=== PATIENT | male | born 1940 | race Caucasian/White ===

== ENCOUNTER 2023-02-27 12:13 | Inpatient (IN) | payer MEDICARE, OTHER ==
[2023-02-27 14:05] LABS: BASOPHILS PERCENT AUTO 0.3 % (0.3-3.8); EOSINOPHILS ABSOLUTE AUTO 0.1 x10-3/uL (0.0-0.6); EOSINOPHILS PERCENT AUTO 0.8 % (0.1-6.8); HEMATOCRIT 45.9 % (38.3-50.1); HEMOGLOBIN 15.5 g/dL (12.9-17.7); LYMPHOCYTES ABSOLUTE AUTO 1.3 x10-3/uL (0.5-4.5); LYMPHOCYTES PERCENT AUTO 12.1 % (15.8-45.3); MEAN CORPUSCULAR HGB CONC 33.7 g/dL (28.7-35.3); MEAN CORPUSCULAR VOLUME 88.9 fL (80.8-98.7); MEAN PLATELET VOLUME 8.6 fL (6.7-11.0); MONOCYTES ABSOLUTE AUTO 0.7 x10-3/uL (0.0-1.2); NEUTROPHILS ABSOLUTE AUTO 8.9 x10-3/uL (1.7-6.9); NEUTROPHILS PERCENT AUTO 80.8 % (40.3-71.8); PLATELET COUNT,PLT 111 x10(3)uL (117-477); RED BLOOD CELL COUNT 5.16 x10(6)uL (3.90-5.90); RED CELL DISTRIBUTION WIDTH 13.7 % (12.4-15.0)
[2023-02-27 14:08] LABS: BLOOD UREA NITROGEN,BUN 12 mg/dL (7-18); CARBON DIOXIDE,CO2 28 mmol/L (21-32); CHLORIDE,CL 105 mmol/L (100-110); CREATININE 0.8 mg/dL (0.70-1.30); EST CRCL DRUG DOSING (CG) 74.77 mL/min; ESTIMATED GFR 89 mL/min (>60); GLUCOSE RANDOM 105 mg/dL (80-116); SODIUM,NA 139 mmol/L (135-145)
[2023-02-27 14:14] LABS: ALANINE AMINOTRANSFERASE,ALT 31 U/L (12-36); ALBUMIN 3.5 g/dL (3.2-4.6); ALKALINE PHOSPHATASE 75 IU/L (56-112); ASPARTATE AMNIOTRANSFERASE,AST 21 IU/L (5-25); PROTEIN TOTAL,TP 6.9 g/dL (6.0-8.0)
[2023-02-27 15:40] LABS: BILIRUBIN,URINE NEGATIVE (NEGATIVE); GLUCOSE,URINE NORMAL (NORMAL); KETONES,URINE NEGATIVE (NEGATIVE); LEUKOCYTE ESTERASE,URINE NEGATIVE (NEGATIVE); NITRITE,URINE NEGATIVE (NEGATIVE); OCCULT BLOOD,URINE NEGATIVE (NEGATIVE); PROTEIN,URINE NEGATIVE (NEGATIVE); UROBILINOGEN,URINE 1 mg/dL (NEGATIVE)
[2023-02-27 15:44] LABS: APPEARANCE,URINE CLEAR (CLEAR); BACTERIA,URINE RARE (NS); COLOR,URINE YELLOW (YELLOW); RBC,URINE 0-5 (0-5); SQUAMOUS EPITHELIAL CELLS,UR OCCASIONAL (NS,R,O); WBC,URINE 0-5 (0-5)
[2023-02-27] MEDS ORDERED: Naloxone 0.4 MG/ML SDV IVPUSH PRN (16:48)
[2023-02-27] MEDS ORDERED: Ondansetron 4 MG/2 ML SDV IV PRN (16:48)
[2023-02-27] MEDS: traMADol 50 MG Tab PO PRN (17:16)
[2023-02-27] MEDS: Sodium Chloride 0.9% 10 ML Syringe FLUSH PRN ×3 (17:25→17:53)
[2023-02-27] MEDS: LORazepam 2 MG/ML SDV IV PRN (17:30)
[2023-02-27] MEDS: Morphine 2 MG/ML SYRINGE IVPUSH PRN (17:53)
[2023-02-28] MEDS: Morphine 2 MG/ML SYRINGE IVPUSH PRN (02:05)
[2023-02-28] MEDS: LORazepam 2 MG/ML SDV IV PRN ×3 (02:08→19:03)
[2023-02-28] MEDS: Sodium Chloride 0.9% 10 ML Syringe FLUSH PRN ×3 (02:12→19:03)
[2023-02-28] MEDS: Losartan 25 MG Tab PO SCH (09:47)
[2023-02-28] MEDS: Metoprolol Tartrate 50 MG Tab PO SCH (09:47)
[2023-02-28] MEDS: Trospium 20 MG Tab PO SCH ×2 (09:47→21:39)
[2023-02-28] MEDS: traMADol 50 MG Tab PO PRN (10:30)
[2023-02-28] MEDS: Calcium Carbonate 500 MG Tablet PO SCH ×2 (10:30→21:39)
[2023-02-28] MEDS: Dexamethasone 4 MG Tab PO SCH (10:30)
[2023-02-28] MEDS: Cholecalciferol (Vitamin D3) 25 MCG Tab PO SCH (10:30)
[2023-02-28] MEDS: Calcitonin (Salmon) Nasal Spray 3.7 ML Bottle NAS SCH (10:32)
[2023-02-28] MEDS: Acetaminophen 325 MG Tab PO PRN (12:33)
[2023-03-01] MEDS: Losartan 25 MG Tab PO SCH (08:26)
[2023-03-01] MEDS: Calcitonin (Salmon) Nasal Spray 3.7 ML Bottle NAS SCH ×2 (08:27→08:58)
[2023-03-01] MEDS: Metoprolol Tartrate 50 MG Tab PO SCH ×3 (08:27→20:08)
[2023-03-01] MEDS: Trospium 20 MG Tab PO SCH ×3 (08:28→20:09)
[2023-03-01] MEDS: Cholecalciferol (Vitamin D3) 25 MCG Tab PO SCH (08:29)
[2023-03-01] MEDS: traMADol 50 MG Tab PO PRN (08:37)
[2023-03-01] MEDS: Ketorolac 15 MG/ML SDV IVPUSH SCH ×2 (08:52→14:09)
[2023-03-01] MEDS: Sodium Chloride 0.9% 10 ML Syringe FLUSH PRN (08:56)
[2023-03-01] MEDS: Dexamethasone 4 MG Tab PO SCH ×3 (08:59→20:07)
[2023-03-01] MEDS: Calcium Carbonate 500 MG Tablet PO SCH ×3 (08:59→20:09)
[2023-03-01] MEDS: Haloperidol Lactate 5 MG/ML SDV IM PRN (16:00)
[2023-03-01] MEDS: Acetaminophen 325 MG Tab PO PRN (16:04)
[2023-03-01] MEDS: Escitalopram 10 MG Tab PO SCH ×2 (20:08)
[2023-03-01] MEDS: Naproxen 500 MG Tab PO SCH (20:09)
[2023-03-02] MEDS: Acetaminophen 325 MG Tab PO PRN (03:37)
[2023-03-02] MEDS: Haloperidol Lactate 5 MG/ML SDV IM PRN ×3 (04:09→21:52)
[2023-03-02] MEDS: Losartan 25 MG Tab PO SCH (09:16)
[2023-03-02] MEDS: Calcium Carbonate 500 MG Tablet PO SCH ×2 (09:16→20:20)
[2023-03-02] MEDS: Trospium 20 MG Tab PO SCH ×2 (09:16→20:20)
[2023-03-02] MEDS: Cholecalciferol (Vitamin D3) 25 MCG Tab PO SCH (09:16)
[2023-03-02] MEDS: Metoprolol Tartrate 50 MG Tab PO SCH ×2 (09:16→20:20)
[2023-03-02] MEDS: Dexamethasone 4 MG Tab PO SCH ×2 (09:17→20:19)
[2023-03-02] MEDS: Naproxen 500 MG Tab PO SCH ×2 (09:17→20:18)
[2023-03-02] MEDS: Calcitonin (Salmon) Nasal Spray 3.7 ML Bottle NAS SCH (09:17)
[2023-03-02] MEDS: traMADol 50 MG Tab PO PRN ×2 (10:33→17:09)
[2023-03-02] MEDS: Escitalopram 10 MG Tab PO SCH (20:19)
[2023-03-02] MEDS ORDERED: OLANZapine 5 MG Tab PO SCH (21:00)
[2023-03-03] MEDS: traMADol 50 MG Tab PO PRN (01:00)
[2023-03-03] MEDS: Haloperidol Lactate 5 MG/ML SDV IM PRN (04:49)
[2023-03-03] MEDS: Losartan 25 MG Tab PO SCH (08:22)
[2023-03-03] MEDS: Metoprolol Tartrate 50 MG Tab PO SCH (08:22)
[2023-03-03] MEDS: Dexamethasone 4 MG Tab PO SCH (08:22)
[2023-03-03] MEDS: Trospium 20 MG Tab PO SCH (08:23)
[2023-03-03] MEDS: Cholecalciferol (Vitamin D3) 25 MCG Tab PO SCH (08:23)
[2023-03-03] MEDS: Calcitonin (Salmon) Nasal Spray 3.7 ML Bottle NAS SCH (08:23)
[2023-03-03] MEDS: Naproxen 500 MG Tab PO SCH (08:23)
[2023-03-03] MEDS: Calcium Carbonate 500 MG Tablet PO SCH (08:23)
== END 2023-03-03 09:33 | disposition swing bed (61) | DRG 552 ==
LOC: FB.ED 12:13 → FB.MS 16:45 → OBSVTOIN 02-28 08:38
PROVIDERS: ADMIT Family Medicine; ATTEND Family Medicine
DX: S32.040A Wedge compression fracture of fourth lumbar vertebra, initial encounter for closed fracture (principal); F01.C11 Vascular dementia, severe, with agitation; I48.11 Longstanding persistent atrial fibrillation; I10 Essential (primary) hypertension; F03.90 Unspecified dementia, unspecified severity, without behavioral disturbance, psychotic disturbance, mood disturbance, and anxiety; I50.9 Heart failure, unspecified; I11.0 Hypertensive heart disease with heart failure; I25.10 Atherosclerotic heart disease of native coronary artery without angina pectoris; J44.9 Chronic obstructive pulmonary disease, unspecified; E78.00 Pure hypercholesterolemia, unspecified; Y92.009 Unspecified place in unspecified non-institutional (private) residence as the place of occurrence of the external cause; Z79.899 Other long term (current) drug therapy; Z95.5 Presence of coronary angioplasty implant and graft; Z98.890 Other specified postprocedural states; Z95.1 Presence of aortocoronary bypass graft; Z86.73 Personal history of transient ischemic attack (TIA), and cerebral infarction without residual deficits; W18.30XA Fall on same level, unspecified, initial encounter
CPT/HCPCS: 36415; 70450; 72125; 72128; 72131; 80053; 81001; 85025; 86140; 93005; 93010; 96374; 96375; 96376; 99284; 99285; A9270; G0378 ×3; J2060 ×2; J2270 ×2; J3490 ×4; 73502-RT; 97116-GP; 97161-GP; 97165-GO; 97530-GO; 97530-GP; 99222; 99232; 99239; J1630; J1885; J8540

== ENCOUNTER 2023-03-03 09:53 | Inpatient (IN) | payer MEDICARE, OTHER ==
[2023-03-03] MEDS ORDERED: Haloperidol Lactate 5 MG/ML SDV IM PRN (10:35)
[2023-03-03] MEDS: Trospium 20 MG Tab PO SCH (20:19)
[2023-03-03] MEDS: OLANZapine 5 MG Tab PO SCH (20:19)
[2023-03-03] MEDS: Naproxen 500 MG Tab PO SCH (20:19)
[2023-03-03] MEDS: Calcium Carbonate 500 MG Tablet PO SCH (20:19)
[2023-03-03] MEDS: Escitalopram 10 MG Tab PO SCH (20:19)
[2023-03-03] MEDS: Metoprolol Tartrate 50 MG Tab PO SCH (20:19)
[2023-03-04] MEDS: Calcium Carbonate 500 MG Tablet PO SCH ×2 (09:49→20:05)
[2023-03-04] MEDS: Naproxen 500 MG Tab PO SCH ×2 (09:49→20:05)
[2023-03-04] MEDS: Metoprolol Tartrate 50 MG Tab PO SCH ×2 (09:49→20:05)
[2023-03-04] MEDS: Calcitonin (Salmon) Nasal Spray 3.7 ML Bottle NAS SCH (09:50)
[2023-03-04] MEDS: Losartan 25 MG Tab PO SCH (09:50)
[2023-03-04] MEDS: atorvaSTATin 20 MG Tab PO SCH (09:50)
[2023-03-04] MEDS: Trospium 20 MG Tab PO SCH ×2 (09:51→20:06)
[2023-03-04] MEDS: Cholecalciferol (Vitamin D3) 25 MCG Tab PO SCH (09:51)
[2023-03-04] MEDS: Escitalopram 10 MG Tab PO SCH (20:04)
[2023-03-04] MEDS: OLANZapine 5 MG Tab PO SCH (20:06)
[2023-03-04] MEDS: traMADol 50 MG Tab PO PRN (20:08)
[2023-03-05] MEDS: Losartan 25 MG Tab PO SCH (08:37)
[2023-03-05] MEDS: atorvaSTATin 20 MG Tab PO SCH (08:38)
[2023-03-05] MEDS: Metoprolol Tartrate 50 MG Tab PO SCH ×2 (08:38→21:20)
[2023-03-05] MEDS: Calcitonin (Salmon) Nasal Spray 3.7 ML Bottle NAS SCH (08:39)
[2023-03-05] MEDS: Naproxen 500 MG Tab PO SCH ×2 (08:40→21:18)
[2023-03-05] MEDS: Trospium 20 MG Tab PO SCH ×2 (08:41→21:19)
[2023-03-05] MEDS: Calcium Carbonate 500 MG Tablet PO SCH ×2 (08:42→21:19)
[2023-03-05] MEDS: Cholecalciferol (Vitamin D3) 25 MCG Tab PO SCH (08:42)
[2023-03-05] MEDS: traMADol 50 MG Tab PO PRN (21:17)
[2023-03-05] MEDS: Escitalopram 10 MG Tab PO SCH (21:19)
[2023-03-05] MEDS: OLANZapine 5 MG Tab PO SCH (21:20)
[2023-03-06] MEDS: Losartan 25 MG Tab PO SCH (09:11)
[2023-03-06] MEDS: Trospium 20 MG Tab PO SCH ×2 (09:11→22:06)
[2023-03-06] MEDS: Cholecalciferol (Vitamin D3) 25 MCG Tab PO SCH (09:11)
[2023-03-06] MEDS: Metoprolol Tartrate 50 MG Tab PO SCH ×2 (09:11→22:06)
[2023-03-06] MEDS: atorvaSTATin 20 MG Tab PO SCH (09:11)
[2023-03-06] MEDS: Naproxen 500 MG Tab PO SCH ×2 (09:11→22:05)
[2023-03-06] MEDS: Calcium Carbonate 500 MG Tablet PO SCH ×2 (09:11→22:06)
[2023-03-06] MEDS: Calcitonin (Salmon) Nasal Spray 3.7 ML Bottle NAS SCH (09:12)
[2023-03-06] MEDS: Escitalopram 10 MG Tab PO SCH (22:05)
[2023-03-06] MEDS: OLANZapine 5 MG Tab PO SCH (22:06)
[2023-03-07] MEDS: atorvaSTATin 20 MG Tab PO SCH (09:42)
[2023-03-07] MEDS: Metoprolol Tartrate 50 MG Tab PO SCH ×2 (09:42→21:44)
[2023-03-07] MEDS: Naproxen 500 MG Tab PO SCH ×2 (09:42→21:44)
[2023-03-07] MEDS: Trospium 20 MG Tab PO SCH ×2 (09:42→21:44)
[2023-03-07] MEDS: Losartan 25 MG Tab PO SCH (09:43)
[2023-03-07] MEDS: Cholecalciferol (Vitamin D3) 25 MCG Tab PO SCH (09:43)
[2023-03-07] MEDS: Calcium Carbonate 500 MG Tablet PO SCH ×2 (09:43→21:45)
[2023-03-07] MEDS: Calcitonin (Salmon) Nasal Spray 3.7 ML Bottle NAS SCH (09:44)
[2023-03-07] MEDS ORDERED: Magnesium Hydroxide 400 MG/5 ML Susp 30 ML Cup PO PRN (18:49)
[2023-03-07] MEDS: OLANZapine 5 MG Tab PO SCH (21:43)
[2023-03-07] MEDS: Escitalopram 10 MG Tab PO SCH (21:45)
[2023-03-08] MEDS: Losartan 25 MG Tab PO SCH (08:30)
[2023-03-08] MEDS: atorvaSTATin 20 MG Tab PO SCH (08:30)
[2023-03-08] MEDS: Metoprolol Tartrate 50 MG Tab PO SCH ×2 (08:30→22:20)
[2023-03-08] MEDS: Cholecalciferol (Vitamin D3) 25 MCG Tab PO SCH (08:30)
[2023-03-08] MEDS: Calcium Carbonate 500 MG Tablet PO SCH ×2 (08:30→22:23)
[2023-03-08] MEDS: Naproxen 500 MG Tab PO SCH ×2 (08:31→22:23)
[2023-03-08] MEDS: Trospium 20 MG Tab PO SCH ×2 (08:31→22:23)
[2023-03-08] MEDS: Calcitonin (Salmon) Nasal Spray 3.7 ML Bottle NAS SCH (08:31)
[2023-03-08] MEDS: Escitalopram 10 MG Tab PO SCH (22:19)
[2023-03-08] MEDS: OLANZapine 5 MG Tab PO SCH (22:24)
[2023-03-09] MEDS: Cholecalciferol (Vitamin D3) 25 MCG Tab PO SCH (09:52)
[2023-03-09] MEDS: Trospium 20 MG Tab PO SCH (09:52)
[2023-03-09] MEDS: Naproxen 500 MG Tab PO SCH (09:53)
[2023-03-09] MEDS: Metoprolol Tartrate 50 MG Tab PO SCH (09:53)
[2023-03-09] MEDS: Losartan 25 MG Tab PO SCH (09:53)
[2023-03-09] MEDS: Calcium Carbonate 500 MG Tablet PO SCH (09:53)
[2023-03-09] MEDS: atorvaSTATin 20 MG Tab PO SCH (09:54)
[2023-03-09] MEDS: Calcitonin (Salmon) Nasal Spray 3.7 ML Bottle NAS SCH (09:54)
== END 2023-03-09 10:30 | DRG 560 ==
LOC: FB.MS 09:53
PROVIDERS: ADMIT Family Medicine; ATTEND Family Medicine
DX: S32.040D Wedge compression fracture of fourth lumbar vertebra, subsequent encounter for fracture with routine healing (principal); F01.C11 Vascular dementia, severe, with agitation; F03.911 Unspecified dementia, unspecified severity, with agitation; I48.11 Longstanding persistent atrial fibrillation; I12.9 Hypertensive chronic kidney disease with stage 1 through stage 4 chronic kidney disease, or unspecified chronic kidney disease; N18.9 Chronic kidney disease, unspecified; E78.00 Pure hypercholesterolemia, unspecified; J44.9 Chronic obstructive pulmonary disease, unspecified; R29.6 Repeated falls; I25.10 Atherosclerotic heart disease of native coronary artery without angina pectoris; Z86.73 Personal history of transient ischemic attack (TIA), and cerebral infarction without residual deficits; Z95.1 Presence of aortocoronary bypass graft; Z79.899 Other long term (current) drug therapy; Z98.890 Other specified postprocedural states
CPT/HCPCS: 97530-GO; 97530-GP; A9270-GY; U0002

== ENCOUNTER 2023-03-22 13:43 | Observation (INO) | payer MEDICARE, OTHER ==
[2023-03-22] MEDS ORDERED: Sodium Chloride 0.9% 1,000 ML IV ONE (14:17)
[2023-03-22 14:52] LABS: HEMATOCRIT 45.7 % (38.3-50.1); MEAN CORPUSCULAR HEMOGLOBIN 30.3 pg (27.0-33.3); MEAN CORPUSCULAR HGB CONC 32.7 g/dL (28.7-35.3); MEAN CORPUSCULAR VOLUME 92.6 fL (80.8-98.7); MEAN PLATELET VOLUME 8.8 fL (6.7-11.0); PLATELET COUNT,PLT 55 x10(3)uL (117-477); RED BLOOD CELL COUNT 4.94 x10(6)uL (3.90-5.90); RED CELL DISTRIBUTION WIDTH 15.6 % (12.4-15.0); WHITE BLOOD CELL COUNT,WBC 10.3 x10-3/uL (3.2-10.1)
[2023-03-22 14:55] LABS: BASE EXCESS VENOUS,POC -20 mmol/L (-2 - 3+); PCO2 VENOUS,POC 30 mmHg (41-51); PH VENOUS,POC 7.09 pH Units (7.32-7.43)
[2023-03-22 15:02] LABS: A/G RATIO 0.9; ALANINE AMINOTRANSFERASE,ALT 83 U/L (12-36); ALBUMIN 2.9 g/dL (3.2-4.6); ALKALINE PHOSPHATASE 459 IU/L (56-112); ASPARTATE AMNIOTRANSFERASE,AST 111 IU/L (5-25); BILIRUBIN TOTAL 3.5 mg/dL (0.1-1.3); BLOOD UREA NITROGEN,BUN 59 mg/dL (7-18); BUN/CREATININE RATIO 11.1 (9-20); CALCIUM 9.5 mg/dL (8.6-10.2); CARBON DIOXIDE,CO2 14 mmol/L (21-32); CHLORIDE,CL 105 mmol/L (100-110); ESTIMATED GFR 10 mL/min (>60); GLUCOSE RANDOM 116 mg/dL (80-116); POTASSIUM,K 4.2 mmol/L (3.5-5.3); PROTEIN TOTAL,TP 6.1 g/dL (6.0-8.0); SODIUM,NA 142 mmol/L (135-145)
[2023-03-22 15:03] LABS: CREATININE 5.3 mg/dL (0.70-1.30)
[2023-03-22 15:09] LABS: BAND PERCENT MAN 2 % (0-6); LYMPHOCYTES PERCENT MAN 2 % (13-37); MONOCYTES PERCENT MAN 1 % (4-12); SEG NEUTROPHILS PERCENT MAN 95 % (46-82)
[2023-03-22 15:15] LABS: BILIRUBIN,URINE NEGATIVE (NEGATIVE); GLUCOSE,URINE NORMAL (NORMAL); KETONES,URINE NEGATIVE (NEGATIVE); LEUKOCYTE ESTERASE,URINE LARGE (NEGATIVE); NITRITE,URINE NEGATIVE (NEGATIVE); OCCULT BLOOD,URINE LARGE (NEGATIVE); PH,URINE 6.5 (5.0-6.5); PROTEIN,URINE 500 mg/dL (NEGATIVE); UROBILINOGEN,URINE NORMAL (NEGATIVE)
[2023-03-22 15:16] LABS: APPEARANCE,URINE TURBID (CLEAR); COLOR,URINE RED (YELLOW); RBC,URINE PACKED (0-5)
[2023-03-22] MEDS ORDERED: Acetaminophen 650 MG Supp RECTAL PRN (16:40)
[2023-03-22] MEDS: Sodium Chloride 0.9% 1,000 ML IV SCH ×2 (16:45→21:34)
[2023-03-22] MEDS: Ondansetron 4 MG/2 ML SDV IV PRN (22:48)
[2023-03-23] MEDS: Sodium Chloride 0.9% 1,000 ML IV SCH ×3 (01:33→09:46)
[2023-03-23] MEDS: Ondansetron 4 MG/2 ML SDV IV PRN (06:02)
[2023-03-23] MEDS: Morphine 2 MG/ML SYRINGE IVPUSH PRN ×6 (06:16→14:38)
[2023-03-23] MEDS ORDERED: Scopolamine 1.5 MG Transdermal Patch TRDERM PRN (11:16)
== END 2023-03-23 15:37 | disposition expired ==
LOC: FB.ED 13:43 → FB.MS 16:12
PROVIDERS: ADMIT Family Medicine; ATTEND Family Medicine
DX: A41.9 Sepsis, unspecified organism (principal); R65.21 Severe sepsis with septic shock; E87.20 Acidosis, unspecified; I95.9 Hypotension, unspecified; K81.0 Acute cholecystitis; N17.9 Acute kidney failure, unspecified; R79.82 Elevated C-reactive protein (CRP); J44.9 Chronic obstructive pulmonary disease, unspecified; S22.050A Wedge compression fracture of T5-T6 vertebra, initial encounter for closed fracture; F01.C11 Vascular dementia, severe, with agitation; I48.91 Unspecified atrial fibrillation; N39.0 Urinary tract infection, site not specified; I25.810 Atherosclerosis of coronary artery bypass graft(s) without angina pectoris; E78.00 Pure hypercholesterolemia, unspecified; I10 Essential (primary) hypertension; N40.1 Benign prostatic hyperplasia with lower urinary tract symptoms; R33.8 Other retention of urine; F41.9 Anxiety disorder, unspecified; F32.A Depression, unspecified; Z79.899 Other long term (current) drug therapy; Z95.1 Presence of aortocoronary bypass graft; Z86.73 Personal history of transient ischemic attack (TIA), and cerebral infarction without residual deficits; Z86.79 Personal history of other diseases of the circulatory system; W19.XXXA Unspecified fall, initial encounter
CPT/HCPCS: 36415; 51702; 71045; 80053; 81001; 83605; 83735; 84484; 85025; 86140; 87040; 87077; 87086; 87088; 87186; 93005; 93010; 96360; 96361; 96374; 96375; 96376; 99223; 99238; 99285; 99285-25; A9270-GY; C1758; G0378; J2270; J2405; J7030